=== PATIENT | male | born 1975 | race Caucasian/White ===

== ENCOUNTER → 2020-12-19 | Day surgery (SDC) | payer MEDICARE ==
[~2020-12-19] MED LIST: ELIQUIS5 MG PO; LIPITOR 10MG TA10 MG PO; LOVENOX100 MG/1 M SC
== END | disposition home or self-care (01) ==
LOC: FAS 06:35
DX: Z12.11 Encounter for screening for malignant neoplasm of colon (principal); D12.5 Benign neoplasm of sigmoid colon; D12.2 Benign neoplasm of ascending colon; K57.30 Diverticulosis of large intestine without perforation or abscess without bleeding; K64.0 First degree hemorrhoids; E78.5 Hyperlipidemia, unspecified; I73.9 Peripheral vascular disease, unspecified; G47.00 Insomnia, unspecified; F17.210 Nicotine dependence, cigarettes, uncomplicated; Z80.0 Family history of malignant neoplasm of digestive organs; Z20.822 Contact with and (suspected) exposure to COVID-19; Z98.890 Other specified postprocedural states; Z95.828 Presence of other vascular implants and grafts; Z79.899 Other long term (current) drug therapy; Z79.01 Long term (current) use of anticoagulants; Z90.49 Acquired absence of other specified parts of digestive tract
CPT/HCPCS: 88305; J2250; J2704; J7120